=== PATIENT | female | born 1985 | race Hispanic/Latino ===

== ENCOUNTER 2017-03-29 11:47 | Day surgery (SDC) | payer OTHER ==
[~2017-03-29 11:47] MED LIST: ANCEF/STERILE WATER 2 GM/20 ML IV NR; HEPARIN SUB-Q NR; LACTATED RINGERS 1,000 ML IV SCH; NACL 0.9% IR ONE; PEPCID PO NR; VERSED IV NR
[2017-03-29] MEDS ORDERED: NACL BACTERIOSTATIC INFILTRATI ONE (12:33)
[2017-03-29] MEDS ORDERED: ZOFRAN IV PRN (13:13)
[2017-03-29] MEDS ORDERED: PERCOCET 5/325 PO PRN (13:13)
[2017-03-29] MEDS ORDERED: TORADOL IV PRN (13:13)
[2017-03-29] MEDS ORDERED: MORPHINE IV PRN (13:13)
--- NOTE | 2017-03-29 13:13 | Anesthesia Consultation ---
Anesthesia Consult and Med Hx Date of service: 03/29/17 - Airway Anesthetic Teeth Evaluation: Good ROM Head & Neck: Adequate Mental/Hyoid Distance: Adequate Mallampati Class: Class I Intubation Access Assessment: Good - Pulmonary Exam CTA: Yes - Cardiac Exam Cardiac Exam: RRR - Pre-Operative Health Status ASA Pre-Surgery Classification: ASA1 Proposed Anesthetic Plan: General - Pulmonary Hx Smoking: No Hx Asthma: No Hx Respiratory Symptoms: No - Cardiovascular System Hx Hypertension: No - Central Nervous System Hx Psychiatric Problems: Yes - Other Systems Hx Cancer: No
--- NOTE | 2017-03-29 13:13 | Anesthesia Day of Surgery ---
Anesthesia Day of Surgery - Day of Surgery Patient Examined: Yes Patient H&P Reviewed: Yes Patient is NPO: Yes
[2017-03-29] MEDS ORDERED: MARCAINE 0.5% INFILTRATI ONE (13:16)
[2017-03-29] MEDS ORDERED: NACL 0.9% IR ONE ×2 (13:16)
[2017-03-29] MEDS ORDERED: DIPRIVAN 10 MG/ML IV ONE (13:25)
[2017-03-29] MEDS ORDERED: XYLOCAINE MPF 2% ONE (13:25)
[2017-03-29] MEDS ORDERED: ZEMURON IV ONE (13:38)
[2017-03-29] MEDS ORDERED: DILAUDID ONE (13:38)
[2017-03-29] MEDS ORDERED: DECADRON ONE (13:54)
[2017-03-29] MEDS ORDERED: ZOFRAN ONE (13:54)
[2017-03-29] MEDS ORDERED: MARCAINE 0.25% INFILTRATI ONE (13:58)
[2017-03-29] MEDS ORDERED: TORADOL ONE (13:59)
--- NOTE | 2017-03-29 14:48 | Short Stay Summary ---
Short Stay Documentation Date of service: 03/29/17 - History H&P: obtained from office - Allergies and Medications Current Medications: Allergies No Known Allergies Allergy (Verified 03/26/17 14:30) Home Medications Medication Instructions Recorded Confirmed Last Taken Type Fexofenadine HCl [Jovana Allergy] 180 mg PO DAILY 03/26/17 03/26/17 Unknown History Active Medications Cefazolin Sodium (Ancef/Sterile Water 2 Gm/20 Ml) 2 gm IV PREOP NR Stop: 03/29/17 23:59 Famotidine (Pepcid) 20 mg PO PREOP NR Stop: 03/29/17 23:59 Last Admin: 03/29/17 12:54 Dose: 20 mg Heparin Sodium (Porcine) (Heparin) 5,000 unit SUB-Q PREOP NR Stop: 03/29/17 23:59 Last Admin: 03/29/17 13:20 Dose: 5,000 unit Lactated Ringer's (Lactated Ringers) 1,000 mls @ 100 mls/hr IV DIRECT JENA Last Admin: 03/29/17 12:55 Dose: 100 mls/hr Ketorolac Tromethamine (Toradol) 30 mg IV ONCE PRN PRN Reason: Pain, Moderate (4-6) Midazolam HCl (Versed) 2 mg IV PREOP NR Stop: 03/29/17 23:59 Last Admin: 03/29/17 13:16 Dose: 2 mg Morphine Sulfate (Morphine) 2 mg IV Q10MIN PRN PRN Reason: Pain, Moderate (4-6) Stop: 03/29/17 23:59 Ondansetron HCl (Zofran) 4 mg IV ONCE PRN PRN Reason: Nausea And Vomiting Oxycodone/Acetaminophen (Percocet 5/325) 1 tab PO ONCE PRN PRN Reason: Pain, Moderate (4-6) - Brief post op/procedure progress note Date of procedure: 03/29/17 Pre-op diagnosis: Gallbladder polyp Post-op diagnosis: same Procedure: Lap benito Anesthesia: ZOILAA, local Surgeon: FRED WINN Estimated blood loss: none Pathology: list (gallbladder) Specimen disposition: to lab Condition: stable - Disposition Condition at discharge: Good Disposition: DC- TO HOME OR SELFCARE Short Stay Discharge Plan Activity: no restrictions Diet: regular Wound: remove dressing (12/17/17 and then may shower) Follow up with: ZOHREH MENDEZ MD [Primary Care Provider] - 7 Days FRED WINN MD [Staff Physician] - 7 Days Prescriptions: oxyCODONE /ACETAMINOPHEN [Percocet 5/325] 1 - 2 tab PO Q4HR PRN #30 tab PRN Reason: Pain Promethazine [Phenergan TAB] 25 mg PO Q6HR PRN #10 tab PRN Reason: Nausea
--- NOTE | 2017-03-29 15:12 | Post Anesthesia Evaluation ---
- Post Anesthesia Evaluation Patient Participated: Yes Airway Patent: Yes Stable Respiratory Function: Yes Nausea/Vomiting: No Temp > 96.8F: Yes Pain Manageable: Yes Adequeate Hydration: Yes Anesthesia Complications: No Block Receding Appropriately: Not Applicable Patient on Ventilator: No
[2017-03-29 17:01] VITALS: BP 129/75
--- NOTE | 2017-03-29 20:14 | Operative Report ---
PREOPERATIVE DIAGNOSIS: Gallbladder polyp. POSTOPERATIVE DIAGNOSIS: Gallbladder polyp. PROCEDURE: Laparoscopic cholecystectomy. SURGEON: Reji Cramer MD ANESTHESIA: General and local. ESTIMATED BLOOD LOSS: Minimal. SPECIMEN: Gallbladder. COMPLICATIONS: None. INDICATIONS: A 32-year-old female who has been found to have gallbladder polyps and presents now for a cholecystectomy for diagnostic and possible therapeutic purposes. OPERATIVE COURSE: The patient was brought to the operating room, identified, and placed in the supine position. General anesthesia was achieved. Her abdomen was prepped and draped in usual manner. Prior to all incisions, the area was infiltrated with 0.25% Marcaine. An infraumbilical 5 mm incision was made using a Veress needle technique. The abdomen was insufflated to 15 mmHg pressure. A 5 mm trocar was inserted using a 30-degree 5-mm telescope. The other trocars were placed under direct vision, which included a 10 mm epigastric port site and two 5 mm right lateral ports. The gallbladder was grasped and elevated. We tented up the triangle of Calot and then dissected out the cystic duct and artery. Once they were clearly identified going to the gallbladder, we placed clips in the artery proximally and distally and transected it. The gallbladder was removed from the liver bed using electrocautery and t hen delivered through the epigastric port site. The liver bed was hemostatic during the procedure. The clips were in good position. No signs of further pathology was seen. The ports were removed under direct vision. No signs of bleeding from the port sites. We then evacuated the CO2 and closed all the incisions with a 4-0 Vicryl suture, Steri-Strips and bandage. JOB# [id number] BSM/NTS
== END 2017-03-29 16:55 | disposition home or self-care (01) ==
LOC: OR 11:47
PROVIDERS: ATTEND Surgery
DX: K80.10 Calculus of gallbladder with chronic cholecystitis without obstruction (principal); F41.9 Anxiety disorder, unspecified; F32.9 Major depressive disorder, single episode, unspecified; Z79.899 Other long term (current) drug therapy
CPT/HCPCS: 47562; 81025; 88304; A4217; J0690; J1100; J1170; J1644; J1885; J2250; J2270; J2405; J2704; J7120